=== PATIENT | female | born 1945 | race Caucasian/White ===

== ENCOUNTER 2017-10-20 10:57 | Inpatient (IN) | payer OTHER ==
[~2017-10-20] VITALS: Ht 165.1 cm; Wt 76.9 kg
[~2017-10-20 10:57] MED LIST: CLARITIN,ALAVAR10 MG PO; COUMADIN2.5 MG PO; COUMADIN5 MG PO; DYAZIDE, MA1 CAPSULE PO; FEMARA2.5 MG PO; HYDROCHLOROTH12.5 M3 PO; NORCO 5/3251 TABLET PO; NORVASC5 MG PO; OMEGA 3 1,0001 EACH PO; PYRIDIUM100 MG PO; TOPROL XL100 MG PO; TRIAMTERENE/HC1 EACH PO; XARELTO20 MG PO; ZANTAC150 MG PO; ZOVIRAX800 M1 PO
[2017-10-20 11:47] LABS: HEMATOCRIT 21.7 % (36.0-46.0); HEMOGLOBIN 7.6 G/DL (11.9-15.5); MCH 30.4 PG (29.0-34.0); MCV 86.8 FL (83-99); PLATELET COUNT 285 K/uL (156-360); RBC DIS.WIDTH-CV 16.8 % (11.8-14.6); RBC DIS.WIDTH-SD 53.9 % (39-53); WHITE BLOOD COUNT 4.3 K/uL (4.1-10.2)
[2017-10-20 11:54] LABS: ALBUMIN 4.2 g/dL (3.2-4.8)
[2017-10-20 11:55] LABS: CHLORIDE 106 mEq/L (99-109); POTASSIUM 4.2 mEq/L (3.7-5.4); SODIUM 138 mEq/L (136-147)
[2017-10-20 11:57] LABS: GLUCOSE 103 mg/dL (70-99); TOTAL PROTEIN 6.6 g/dL (6.4-8.3)
[2017-10-20 11:59] LABS: TOTAL BILIRUBIN 0.5 mg/dL (0.0-1.0)
[2017-10-20 12:00] LABS: ALKALINE PHOSPHATASE 128 IU/L (3-129)
[2017-10-20 12:01] LABS: CREATININE 1.3 mg/dL (0.6-1.3); GFR ESTIMATE (CALCULATED) 43 mL/min/
[2017-10-20 12:02] LABS: AST (GOT) 12 IU/L (2-34); UREA NITROGEN (BUN) 24 mg/dL (9-23)
[2017-10-20 12:03] LABS: ALT (GPT) 14 IU/L (3-49)
[2017-10-20 15:20] VITALS: BP 125/63
[2017-10-20 15:39] VITALS: BP 145/76
[2017-10-20 15:57] VITALS: BP 144/71
[2017-10-20] MEDS ORDERED: OMEPRAZOLE20 MG PO (15:59)
[2017-10-20] MEDS ORDERED: DURVALUMAB IV (16:00)
[2017-10-20] MEDS ORDERED: LYNPARZA100 MG PO (16:01)
[2017-10-20] MEDS ORDERED: LORAZEPAM0.5 MG PO (16:01)
[2017-10-20] MEDS ORDERED: DILAUDID2 MG PO (16:03)
[2017-10-20 16:21] VITALS: BP 114/73
[2017-10-20 17:40] VITALS: BP 130/60
[2017-10-20 18:49] VITALS: BP 106/55
[2017-10-20 19:46] LABS: IRON 179 MCG/DL (35-150); TRANSFERRIN (TIBC) 155.3 mg/dL (215-380)
[2017-10-20 19:53] LABS: TRANSFERRIN SATUR. 115 % (20-55)
[2017-10-21] VITALS (9 sets, daily range): BP systolic 105–122; BP diastolic 53–86
[2017-10-21 05:42] LABS: HEMATOCRIT 21.2 % (36.0-46.0); HEMOGLOBIN 7.2 G/DL (11.9-15.5); MCH 29.4 PG (29.0-34.0); MCV 86.5 FL (83-99); PLATELET COUNT 256 K/uL (156-360); RBC DIS.WIDTH-CV 16.7 % (11.8-14.6); RBC DIS.WIDTH-SD 52.8 % (39-53); RED BLOOD COUNT 2.45 M/uL (3.80-5.20); WHITE BLOOD COUNT 3.7 K/uL (4.1-10.2)
[2017-10-21 06:39] LABS: CHLORIDE 108 MEQ/L (99-109); CREATININE 1.3 MG/DL (0.6-1.3); GFR ESTIMATE (CALCULATED) 43 mL/min/; GLUCOSE 88 mg/dL (70-99); POTASSIUM 3.6 MEQ/L (3.7-5.4); SODIUM 141 MEQ/L (136-147); UREA NITROGEN (BUN) 22 mg/dL (9-23)
[2017-10-21 19:51] LABS: HEMATOCRIT 26.1 % (36.0-46.0); HEMOGLOBIN 8.8 G/DL (11.9-15.5); MCV 83.9 FL (83-99)
[2017-10-22 00:22] VITALS: BP 112/53
[2017-10-22 06:03] LABS: HEMATOCRIT 26.7 % (36.0-46.0); MCV 83.7 FL (83-99)
[2017-10-22 06:04] LABS: BASOPHIL (%) 2.2 % (0-1); BASOPHIL COUNT 0.1 K/uL (0-0.1); EOSINOPHIL (%) 6.1 % (0-5); EOSINOPHIL COUNT 0.3 K/uL (0-0.3); HEMATOCRIT 27.2 % (36.0-46.0); IMMATURE GRANULOCYTE (%) 0.5 % (0.0-0.7); LYMPHOCYTE (%) 15.4 % (15-42); LYMPHOCYTE COUNT 0.6 K/uL (1.0-2.8); MCH 27.8 PG (29.0-34.0); MCHC 33.1 G/DL (30.0-36.0); MONOCYTE COUNT 0.4 K/uL (0-0.8); NEUTROPHIL (%) 65.8 % (45-76); NEUTROPHIL COUNT 2.7 K/uL (1.8-6.4); PLATELET COUNT 260 K/uL (156-360); RBC DIS.WIDTH-CV 16.7 % (11.8-14.6); RBC DIS.WIDTH-SD 50.3 % (39-53); WHITE BLOOD COUNT 4.1 K/uL (4.1-10.2)
[2017-10-22 06:16] LABS: RED BLOOD COUNT 3.24 M/uL (3.80-5.20)
[2017-10-22 06:17] LABS: CHLORIDE 110 MEQ/L (99-109); CREATININE 1.2 MG/DL (0.6-1.3); GFR ESTIMATE (CALCULATED) 47 mL/min/; GLUCOSE 94 mg/dL (70-99); POTASSIUM 4.1 MEQ/L (3.7-5.4); SODIUM 143 MEQ/L (136-147); UREA NITROGEN (BUN) 23 mg/dL (9-23)
[2017-10-22 07:20] VITALS: BP 118/60
[2017-10-22 13:20] LABS: HEMATOCRIT 28.9 % (36.0-46.0); HEMOGLOBIN 9.8 G/DL (11.9-15.5); MCV 83.8 FL (83-99)
[2017-10-22 16:12] VITALS: BP 123/60
[2017-10-22 19:53] LABS: HEMATOCRIT 28.2 % (36.0-46.0); HEMOGLOBIN 9.5 G/DL (11.9-15.5); MCV 84.2 FL (83-99)
[2017-10-23 00:36] VITALS: BP 110/53
[2017-10-23 06:40] LABS: HEMATOCRIT 27.9 % (36.0-46.0); HEMOGLOBIN 9.3 G/DL (11.9-15.5); MCH 28.1 PG (29.0-34.0); MCHC 33.3 G/DL (30.0-36.0); MCV 84.3 FL (83-99); NRBC (%) 1.5 /100 WBC (0-0); PLATELET COUNT 254 K/uL (156-360); RBC DIS.WIDTH-CV 16.7 % (11.8-14.6); RBC DIS.WIDTH-SD 50.4 % (39-53); RED BLOOD COUNT 3.31 M/uL (3.80-5.20); WHITE BLOOD COUNT 4.1 K/uL (4.1-10.2)
[2017-10-23 07:15] VITALS: BP 106/52
[2017-10-23] MEDS ORDERED: CEFEPIME HCL2 GM IV (11:05)
[2017-10-23] MEDS ORDERED: HYDROMORPHONE HC2 MG PO (11:09)
== END 2017-10-23 14:22 | disposition home or self-care (01) | DRG 601 ==
LOC: EME 10:57 → 5EAST 15:22 → EDOF 15:22 → ENRESERV 15:23 → 5EAST 17:27
PROVIDERS: Emergency Medicine; Hospitalist; Internal Medicine; Student in an Organized Health Care Education/Training Program
PROC: 30233N1 Transfusion of Nonautologous Red Blood Cells into Peripheral Vein, Percutaneous Approach (ICD-10-PCS; principal; 2017-10-21)
DX: N61.0 Mastitis without abscess (principal); I10 Essential (primary) hypertension; D64.9 Anemia, unspecified; N64.52 Nipple discharge; N63.0 Unspecified lump in unspecified breast; Z87.891 Personal history of nicotine dependence; Z90.11 Acquired absence of right breast and nipple; Z92.21 Personal history of antineoplastic chemotherapy; Z92.3 Personal history of irradiation; Z79.899 Other long term (current) drug therapy; Z85.3 Personal history of malignant neoplasm of breast; Z79.01 Long term (current) use of anticoagulants; Z86.711 Personal history of pulmonary embolism; Z88.5 Allergy status to narcotic agent; Z88.2 Allergy status to sulfonamides; Z88.1 Allergy status to other antibiotic agents
CPT/HCPCS: 36415; 71260; 80048; 80053; 82272; 83540; 83605; 84466; 85014; 85018; 85025; 85025 91; 85027; 86850; 86900; 86901; 86920; 87040; 87070; 87075; 87076; 87077; 87185; 87186; 87205; 99281; 99285; J0692; J1885; J2543; J7042; J7050; P9016

== ENCOUNTER 2017-11-18 19:41 | Emergency (ER) | payer OTHER ==
[~2017-11-18] VITALS: Ht 165.1 cm; Wt 73.6 kg
[~2017-11-18 19:41] MED LIST changes: +CEFEPIME HCL2 GM IV; +DILAUDID2 MG PO; +DILAUDID4 MG PO; +DURVALUMAB IV; +HYDROMORPHONE HC2 MG PO; +LORAZEPAM0.5 MG PO; +LYNPARZA100 MG PO; +MORPHINE SULFAT15 M1 PO; +OMEPRAZOLE20 MG PO
[2017-11-18 22:30] VITALS: BP 143/74
== END 2017-11-18 22:40 | disposition home or self-care (01) ==
LOC: EME 19:41
DX: S93.401A Sprain of unspecified ligament of right ankle, initial encounter (principal); S20.219A Contusion of unspecified front wall of thorax, initial encounter; X50.1XXA Overexertion from prolonged static or awkward postures, initial encounter; W01.0XXA Fall on same level from slipping, tripping and stumbling without subsequent striking against object, initial encounter; I10 Essential (primary) hypertension; Z86.711 Personal history of pulmonary embolism; Z79.01 Long term (current) use of anticoagulants; Z85.3 Personal history of malignant neoplasm of breast; Z90.11 Acquired absence of right breast and nipple; Z92.21 Personal history of antineoplastic chemotherapy; Z87.891 Personal history of nicotine dependence
CPT/HCPCS: 71046; 73610; 99281; 99284